=== PATIENT | male | born 1970 | race Caucasian/White ===

== ENCOUNTER 2017-02-19 17:49 | Emergency (ER) | payer OTHER ==
[~2017-02-19] VITALS: Ht 193 cm; Wt 130.5 kg
[2017-02-19 17:51] VITALS: BP 163/85
== END 2017-02-19 18:47 | disposition home or self-care (01) ==
LOC: ED 18:30
DX: H92.02 Otalgia, left ear (principal); I10 Essential (primary) hypertension; F12.10 Cannabis abuse, uncomplicated
CPT/HCPCS: 99283